=== PATIENT | male | born 1960 | race American Indian/Alaskan Native ===

== ENCOUNTER 2017-02-11 23:19 | Outpatient (CLI) | payer OTHER | END 2017-02-11 23:22 | disposition short-term general hospital (02) | LOC: AMB 23:19 | DX: S01.401A Unspecified open wound of right cheek and temporomandibular area, initial encounter (principal); S21.101A Unspecified open wound of right front wall of thorax without penetration into thoracic cavity, initial encounter; S21.202A Unspecified open wound of left back wall of thorax without penetration into thoracic cavity, initial encounter; S41.002A Unspecified open wound of left shoulder, initial encounter; X95.8XXA Assault by other firearm discharge, initial encounter; Y92.098 Other place in other non-institutional residence as the place of occurrence of the external cause | CPT/HCPCS: A0425; A0427 ==

== ENCOUNTER 2017-02-11 23:30 | Emergency (ER) | payer OTHER ==
[~2017-02-11] VITALS: Ht 167.6 cm; Wt 77.1 kg
== END 2017-02-12 03:26 | disposition expired ==
LOC: ED 23:30
PROC: 5A12012 Performance of Cardiac Output, Single, Manual (ICD-10-PCS; principal; 2017-02-11)
PROC: 0T9B70Z Drainage of Bladder with Drainage Device, Via Natural or Artificial Opening (ICD-10-PCS; 2017-02-11)
PROC: 0W9900Z Drainage of Right Pleural Cavity with Drainage Device, Open Approach (ICD-10-PCS; 2017-02-11)
PROC: 30233N1 Transfusion of Nonautologous Red Blood Cells into Peripheral Vein, Percutaneous Approach (ICD-10-PCS; 2017-02-11)
DX: S27.1XXA Traumatic hemothorax, initial encounter (principal); S42.00 Fracture of unspecified part of clavicle; S01.80XA Unspecified open wound of other part of head, initial encounter; S21.301A Unspecified open wound of right front wall of thorax with penetration into thoracic cavity, initial encounter; X95.9XXA Assault by unspecified firearm discharge, initial encounter
CPT/HCPCS: 36415; 36430; 86850; 86900; 86901; 86922; 96360; 96361; 99291; P9016